=== PATIENT | female | born 2000 | race African-American/Black ===

== ENCOUNTER 2023-06-12 17:39 | Emergency (ER) | payer BC, SELFPAY ==
[2023-06-12 17:47] VITALS: BP 133/90; PULSE 81; RESP 18; TEMP 36.6; O2SAT 100; BMI 22.5
--- NOTE | 2023-06-12 18:08 | ED_ITS ---
HPI - General Adult General Chief complaint: Extremity Pain/Injury, Lower Stated complaint: Sandro referral for rule out blood clot Time Seen by Provider: 06/12/23 18:00 Source: patient Mode of arrival: ambulatory Limitations: no limitations History of Present Illness HPI narrative: 23-year-old female coming in today for leg pain. She was sent over from the [facility] to rule out DVT. Patient tells me that for the last 2 days she has had left-sided calf pain. Today the pain is resolved it still slightly uncomfortable but not the soreness she was feeling yesterday. And it has now moved to the right calf. She denies swelling of either calf. She denies difficulty walking. She denies coughing shortness of breath. She denies recent travel. She denies smoking. She denies being on control. She denies any recent surgery. She denies any personal history of blood clots. She is adopted so she is unsure of family history. She does tell me that she has been having chronic muscle aches for several months now and that she has been getting worked up for that. She has migrating muscle aches throughout the entire body and tingling of the extremities. She states that she has had blood work and imaging done but nothing has turned up any answers so far. Upon further conversation this does not feel terribly different than muscle aches she has had before, just different location. She was diagnosed with COVID-19 6 days ago. She had mild upper respiratory symptoms which have now resolved. Related Data Home Medications Medication Instructions Recorded Confirmed No Known Home Medications 06/12/23 06/12/23 Review of Systems Status of ROS: Reports: 10 or more systems reviewed and unremarkable except as noted in History and below PFSH [facility] Social History Smoking Status: Never smoker Do you use any of these nicotine containing products: None Second hand tobacco smoke exposure: No How often do you have a drink containing alcohol: never How often do you have six or more drinks on one occasion: Never AUDIT-C Alcohol total score: 0 Non-prescribed substance use: denies use service: No Exam Narrative: Exam Narrative: Well-nourished well-developed patient in no acute distress. Alert and oriented. Answers questions appropriately. Mood and affect are appropriate. Thoughts are goal oriented and rational. No tangential or magical thinking noted. Patient speaks in full sentences without needing to catch her breath. Does not appear ill or toxic. HEENT: Normocephalic atraumatic. Pupils are equally round reactive to light. Extraocular muscles are intact. Conjunctivae are moist without any icterus noted. Moist mucous membranes. Posterior pharynx is normal. Neck is soft without any lymphadenopathy or thyromegaly. No masses are appreciated. Cardiovascular: Heart is regular rate and rhythm S1 and S2 are present without any murmurs. Lungs: Clear to auscultation bilaterally no wheezes rhonchi or rales are appreciated. Patient takes deep breaths without any discomfort. Abdomen: Soft and nontender nondistended with normal bowel sounds. Extremities: Bilateral lower extremities are without edema. Normal DP and PT pulses. Negative Homans sign. There is no swelling or asymmetry of the lower extremities. Calves are soft. There is no superficial cords felt. There is no bruising or erythema. Skin: Well perfused without any obvious rashes. Const: Vital Signs, click to edit/add: Vital Signs - 24 hr 06/12/23 17:47 Temperature 97.8 F Pulse Rate [Pulse Oximeter] 81 Respiratory Rate 18 Blood Pressure [facility] 133/90 H Pulse Oximetry 100 Oxygen Delivery Me thod Room Air Course Vital Signs Vital signs: Initial Vital Signs Temperature 97.8 F 06/12/23 17:47 Temperature Source Temporal Artery Scan 06/12/23 17:47 Pulse Rate 81 06/12/23 17:47 Respiratory Rate 18 06/12/23 17:47 Blood Pressure 133/90 H 06/12/23 17:47 Blood Pressure Mean 104 06/12/23 17:47 Pulse Oximetry 100 06/12/23 17:47 Oxygen Delivery Method Room Air 06/12/23 17:47 Vital Signs Temperature 97.8 F 06/12/23 17:47 Pulse Rate 81 06/12/23 17:47 Respiratory Rate 18 06/12/23 17:47 Blood Pressure 133/90 H 06/12/23 17:47 Pulse Oximetry 100 06/12/23 17:47 Oxygen Delivery Method Room Air 06/12/23 17:47 Temperature 97.8 F 06/12/23 17:47 Pulse Rate 81 06/12/23 17:47 Respiratory Rate 18 06/12/23 17:47 Blood Pressure 133/90 H 06/12/23 17:47 Pulse Oximetry 100 06/12/23 17:47 Oxygen Delivery Method Room Air 06/12/23 17:47 Medical Decision Making MDM Narrative Medical decision making narrative: 23-year-old female with my greeting muscle aches. I do not think this represents a blood clot given that the pain she felt yesterday and 1 side is resolved. History of her current symptoms do fit with the chronic muscle achiness that she has been experiencing. At this time I recommend she follow up with a specialist -consider rheumatology. Discharge Plan Discharge Clinical Impression: Muscle ache Patient Disposition: Home, Self-Care Condition: Stable Additional Instructions: The history of your current symptoms do not fit the typical presentation of a blood clot. At this time I do think you are experiencing ongoing muscle aches. If you have not yet done so, recommend you follow-up with a retail assistant store manager. You may need a referral for your primary care provider. Prescriptions: No Action No Known Home Medications Stand Alone Forms: [employer] Info Instructions
== END 2023-06-12 18:44 | disposition home or self-care (01) ==
LOC: ED 18:41
PROVIDERS: Emergency Provider Family Medicine
DX: M79.10 Myalgia, unspecified site (principal)
CPT/HCPCS: 99282; 99283